=== PATIENT | male | born 1995 | race Caucasian/White ===

== ENCOUNTER 2024-02-07 11:07 | Emergency (ER) | payer SELFPAY ==
[2024-02-07 11:09] VITALS: BP 114/66
--- NOTE | 2024-02-07 11:13 | ED.GENMED ---
ED Provider Triage
<Rukhsana Weston PA-C - Last Filed: 02/07/24 11:19>
-
Patient seen by provider in Triage?: Seen in Triage
Attestation: A medical screening examination has been initiated by a qualified medical provider. Based on the assessment performed at this time, it has been determined that an emergent medical condition may exist and the patient has been informed
that further medical evaluation and possible additional diagnostic testing may be needed.
HPI: 28yoM here with nausea, vomiting, diarrhea that started today. Coming in via EMS. Now c/o SOB and feels like his skin is vibrating. Started to feel a little under the weather yesterday.
GENERAL: Alert , in no apparent distress
EYE: No visual abnormalities.
NECK: Trachea midline
ENT: No visible abnormalities.
LUNGS: No acute respiratory distress
NEUROLOGICAL: Alert and oriented
SKIN: Skin intact. No visible changes.
MUSCULOSKELETAL: Moving extremities normally
PSYCH: Normal and appropriate interaction.
This is a medical evaluation conducted in person to initiate diagnostic evaluation and provide initial therapeutics. Please see further documentation by the treating clinician.
Cardiac labs, COVID/flu swab, EKG, and CXR ordered. ODT Zofran ordered for nausea.
History of Present Illness
<Rukhsana Weston PA-C - Last Filed: 02/07/24 11:19>
General
Chief Complaint: Abdominal Symptoms
Time Seen by Provider: 02/07/24 12:03
<Tello Camejo Jr., PA-C - Last Filed: 02/07/24 15:25>
General
Source: patient
Exam Limitations: none
Nursing documentation reviewed up to this point in time: agreed with
History of Present Illness
History of Present Illness:
28-year-old male presenting to the emergency department via EMS with concerns of nausea vomiting diarrhea and shortness of breath after vomiting earlier today denies any symptoms yesterday denies any chest pain abdominal pain urinary symptoms.
Past History
<Rukhsana Weston PA-C - Last Filed: 02/07/24 11:19>
Past History
ED Past Medical History: None
ED Past Surgical History: None
Social History
Tobacco: Non-smoker
Alcohol: None
Drug: None
Review of Systems
<Tello Camejo Jr., PA-C - Last Filed: 02/07/24 15:25>
Review of Systems
Allergies reviewed?: Yes
All Other Systems: ROS reviewed and negative except as documented in HPI and ROS
Phy Exam
<Tello Camejo Jr., PA-C - Last Filed: 02/07/24 15:25>
Physical Exam
Physical Exam:
GENERAL: Alert , in no apparent distress
EYE: pupils equal and reactive
NECK: Supple, no significant adenopathy.
ENT: o/p clr, mmm.
CARDIAC: Regular rate and rhythm .
LUNGS: Clear breath sounds bilaterally, no acute respiratory distress, no wheezes/rales/rhonchi
ABDOMEN: Soft, without focal tenderness, no r/g, no cvat
NEUROLOGICAL: Alert and oriented, no focal neuro deficits
SKIN: Warm and dry, skin intact.
MUSCULOSKELETAL: No edema, well perfused.
PSYCH: Normal and appropriate interaction.
Course
<Rukhsana Weston PA-C - Last Filed: 02/07/24 11:19>
Orders/Labs/Results
Orders:
Orders
02/07/24 11:17
Electrocardiogram (*1) Urgent
Reason for Study: Shortness of Breath
EKG- Treatment ONCE
Ondansetron Orally Disint [Zofran Odt (Orally Disintegrating)] 4 mg PO NOW STA
CR Chest - 2 Views Urgent
Comment:
Reason For Exam: SOB
02/07/24 11:32
COVID-19 Antigen Urgent
Source: Nasal Swab
Complete Blood Count/With Diff Urgent
Comprehensive Metabolic Panel Urgent
Lipase Urgent
Troponin I Urgent
Influenza A+B Rapid Molecular Urgent
HELEN Source: Nasal Swab
Specimen Description:
02/07/24 12:35
0.9% Sodium Chloride 1000 ml [Nss] 1,000 ml IV BOLUS
Ondansetron Injectable [Zofran] 4 mg IV NOW STA
02/07/24 13:07
Famotidine [Pepcid] 20 mg IV NOW STA
Abnormal Lab Results
02/07/24
11:32
WBC 13.2 H 10^3/uL
(4.8-10.8)
MPV 10.6 H fL
(7.4-10.4)
Abs Immat Gran (auto) 0.1 H 10^3/uL
(0-0.05)
Absolute Neuts (auto) 12.1 H 10^3/uL
(1.4-6.5)
Absolute Lymphs (auto) 0.4 L 10^3/uL
(1.2-3.4)
Immature Gran % 0.6 H %
(0-0.5)
Neutrophils % 91.4 H %
(42.2-75.2)
Lymphocytes % 3.2 L %
(20.5-51.1)
Carbon Dioxide 20 L mmol/L
(22-30)
Glucose 131 H mg/dl
(70-99)
Calcium 10.5 H mg/dl
(8.4-10.2)
Total Protein 8.5 H g/dl
(6.3-8.2)
Albumin 5.2 H g/dl
(3.5-5.0)
02/07/24 11:32
02/07/24 11:32
Vital Signs
Initial and Last Documented VS:
Initial Vital Signs
Temp Pulse Resp BP Pulse Ox
98.9 F 96 16 114/66 99
02/07/24 11:09 02/07/24 11:09 02/07/24 11:09 02/07/24 11:09 02/07/24 11:09
Last Documented Vital Signs
Temp Pulse Resp BP Pulse Ox
98.9 F 75 15 125/68 100
02/07/24 11:09 02/07/24 12:31 02/07/24 12:31 02/07/24 12:30 02/07/24 12:31
<Tello Camejo Jr., PA-C - Last Filed: 02/07/24 15:25>
Orders/Labs/Results
Orders:
Orders
02/07/24 11:17
Electrocardiogram (*1) Urgent
Reason for Study: Shortness of Breath
EKG- Treatment ONCE
Ondansetron Orally Disint [Zofran Odt (Orally Disintegrating)] 4 mg PO NOW STA
CR Chest - 2 Views Urgent
Comment:
Reason For Exam: SOB
02/07/24 11:32
COVID-19 Antigen Urgent
Source: Nasal Swab
Complete Blood Count/With Diff Urgent
Comprehensive Metabolic Panel Urgent
Lipase Urgent
Troponin I Urgent
Influenza A+B Rapid Molecular Urgent
HELEN Source: Nasal Swab
Specimen Description:
02/07/24 12:35
0.9% Sodium Chloride 1000 ml [Nss] 1,000 ml IV BOLUS
Ondansetron Injectable [Zofran] 4 mg IV NOW STA
02/07/24 13:07
Famotidine [Pepcid] 20 mg IV NOW STA
Abnormal Lab Results
02/07/24
11:32
WBC 13.2 H 10^3/uL
(4.8-10.8)
MPV 10.6 H fL
(7.4-10.4)
Abs Immat Gran (auto) 0.1 H 10^3/uL
(0-0.05)
Absolute Neuts (auto) 12.1 H 10^3/uL
(1.4-6.5)
Absolute Lymphs (auto) 0.4 L 10^3/uL
(1.2-3.4)
Immature Gran % 0.6 H %
(0-0.5)
Neutrophils % 91.4 H %
(42.2-75.2)
Lymphocytes % 3.2 L %
(20.5-51.1)
Carbon Dioxide 20 L mmol/L
(22-30)
Glucose 131 H mg/dl
(70-99)
Calcium 10.5 H mg/dl
(8.4-10.2)
Total Protein 8.5 H g/dl
(6.3-8.2)
Albumin 5.2 H g/dl
(3.5-5.0)
02/07/24 11:32
02/07/24 11:32
Vital Signs
Initial and Last Documented VS:
Initial Vital Signs
Temp Pulse Resp BP Pulse Ox
98.9 F 96 16 114/66 99
02/07/24 11:09 02/07/24 11:09 02/07/24 11:09 02/07/24 11:09 02/07/24 11:09
Last Documented Vital Signs
Temp Pulse Resp BP Pulse Ox
98.9 F 75 15 125/68 100
02/07/24 11:09 02/07/24 12:31 02/07/24 12:31 02/07/24 12:30 02/07/24 12:31
<Tello Camejo Jr., PA-C - Last Filed: 02/07/24 15:25>
MDM/Problems Addressed
MDM/Problems Addressed:
28-year-old male presenting to the emergency department today with concerns of nausea vomiting diarrhea starting this morning. Center somewhat short of breath after vomiting. Upon arrival vital signs are normal patient no distress no abdominal pain
given Zofran with some improvement of symptoms able to tolerate by mouth also given fluids here able to walk claims to have significant improvement of symptoms with stomach bug. Stable for outpatient management return precautions given.
<Tello Camejo Jr., PA-C - Last Filed: 02/07/24 15:25>
*Critical Care Note
Total Time (30-74mins, 75-104mins- exclusive of procedures): Not Applicable
ED Attending Note
<Rukhsana Weston PA-C - Last Filed: 02/07/24 11:19>
-
Portions of this chart may have been created with voice recognition software.� Occasional wrong word or��sound alike� substitutions may have occurred due to the inherent limitations of voice recognition software.
Discharge Plan
Departure
Patient Disposition: Home (Routine Discharge)
Date of Disposition: 02/07/24
Time of Disposition: 15:23
Patient with high blood pressure during this ER visit?: No
Condition: Good
Covid-19: Not Applicable
Discharge Problem:
Nausea, vomiting and diarrhea
Instructions: Viral gastroenteritis in adults
Prescriptions:
New
ondansetron 4 mg tablet,disintegrating
4 mg PO Q6H PRN (Reason: nausea and vomiting) Qty: 7 0RF
No Action
multivitamin [Men's Multi-Vitamin] Tablet
1 tab PO DAILY
Referrals:
NONE,* [Family Provider] -
Activity Restrictions/Additional Instructions:
You came to the emergency department today with concerns of nausea vomiting diarrhea shortness of breath and generalized symptoms. Here your reassuring assessment with improving symptoms here. This is more likely to be a stomach bug. Please take
the medications and return for any worsening, new or concerning symptoms.
Interventions
Interventions:
*Risk Screen - Suicide Last Done: 02/07/24 12:26
*General Assessment Last Done: 02/07/24 12:21
*Neglect/Abuse Screening Last Done: 02/07/24 12:26
ED- Fall Risk Assessment Last Done: 02/07/24 12:21
*ED COVID-19 Vaccine History Last Done: 02/07/24 12:21
UP-Lrzxig-Vxxskhyqva Assessment Last Done: 02/07/24 12:21
Discharge Date and Time
Print Language: HAITIAN
[2024-02-07] MEDS: ZOFRAN ODT (ORALLY DISINTEGRATING) 4 MG PO (11:24)
[2024-02-07 11:45] LABS: % Basophils 0.2 % (0-2); % Eosinophils 0.1 % (0-6); % Immature Granulocytes 0.6 % (0-0.5); % Lymphocytes 3.2 % (20.5-51.1); % Monocytes 4.5 % (1.7-9.3); % Neutrophils 91.4 % (42.2-75.2); Absolute Immature Granulocytes 0.1 10^3/uL (0-0.05); Absolute Lymphocytes 0.4 10^3/uL (1.2-3.4); Absolute Monocytes 0.6 10^3/uL (0.1-0.6); Absolute Neutrophils 12.1 10^3/uL (1.4-6.5); Hematocrit 46.8 % (39.0-52.0); Hemoglobin 16.4 g/dL (13.0-18.0); Mean Corpuscular Hgb 30.6 pg (27.0-31.0); Mean Corpuscular Volume 87.3 fL (80.0-94.0); Mean Platelet Volume 10.6 fL (7.4-10.4); Nucleated Red Blood Cells % 0 % (-); Platelet Count 252 10^3/uL (130-400); Red Blood Cell Count 5.36 10^6/uL (4.70-6.10); Red Cell Dist. Width 12.2 % (11.5-14.5); White Blood Cell Count 13.2 10^3/uL (4.8-10.8)
[2024-02-07 11:55] LABS: COVID-19 Antigen Negative (Negative)
[2024-02-07 12:04] LABS: ALT (SGPT) 23 U/L (0-50); AST (SGOT) 28 U/L (17-59); Albumin 5.2 g/dl (3.5-5.0); Alkaline Phosphatase 96 U/L (38-126); Blood Urea Nitrogen 15 mg/dl (9-20); Calcium 10.5 mg/dl (8.4-10.2); Carbon Dioxide 20 mmol/L (22-30); Chloride 102 mmol/L (98-107); Glucose 131 mg/dl (70-99); Lipase 100 U/L (23-300); Potassium 4.1 mmol/L (3.5-5.1); Sodium 139 mmol/L (135-145); Total Bilirubin 1.3 mg/dl (0.2-1.3); Total Protein 8.5 g/dl (6.3-8.2); eGFR > 60.00
[2024-02-07 12:14] LABS: Troponin I < 0.012 ng/ml
[2024-02-07 12:30] VITALS: BP 125/68
[2024-02-07] MEDS: ZOFRAN 4 MG IV (12:41)
[2024-02-07] MEDS: NSS 1000 IV (12:41)
[2024-02-07] MEDS: PEPCID 20 MG IV (13:33)
[2024-02-07 15:36] VITALS: BP 145/80
== END 2024-02-07 15:37 | disposition home or self-care (01) ==
LOC: EMR 11:07
PROVIDERS: Physician Assistant; EMERGENCY PHYSICIAN Emergency Medicine
DX: R11.2 Nausea with vomiting, unspecified (principal); R19.7 Diarrhea, unspecified
CPT/HCPCS: 99283; 71046; 80053; 83690; 84484; 85025; 87502; 87811; 93005